=== PATIENT | male | born 1995 | race Caucasian/White ===

== ENCOUNTER 2020-05-17 01:40 | Emergency (ER) | payer OTHER ==
[~2020-05-17] VITALS: Ht 177.8 cm; Wt 81.6 kg
[2020-05-17 01:59] VITALS: BP 140/96
--- NOTE | 2020-05-17 02:02 | NUR ---
PT TAKEN TO CHAIR A
--- NOTE | 2020-05-17 02:14 | NUR ---
24 Y/O MALE PRESENTS TO ER WITH C/O DRY COUGH X 5 DAYS. 0/10 PAIN. C/O HEADACHE, BODY ACHE. DENIES SOB, NAUSEA, VOMITING, DIARRHEA. AFEBRILE. VSS, R/R EQUAL AND UNLABORED, O2: 97%. PT STATES HE TOOK NYQUIL, IBUPROFEN, SUDAFED X 3 HRS AGO. SITTING IN CHAIR A, WILL CONTINUE TO MONITOR. NKDA DENIES PMH
--- NOTE | 2020-05-17 02:28 | NUR ---
Patient discharged with v/s stable. Written and verbal after care instructions given and explained. Patient verbalized understanding. Ambulatory with steady gait. All questions addressed prior to discharge. Advised to follow up with PMD.
[2020-05-17 02:29] VITALS: BP 140/96
== END 2020-05-17 02:28 | disposition home or self-care (01) ==
LOC: MED 01:40
DX: R50.9 Fever, unspecified (principal); R05 Cough; R03.0 Elevated blood-pressure reading, without diagnosis of hypertension
CPT/HCPCS: 99282